=== PATIENT | female | born 1975 | race American Indian/Alaskan Native ===

== ENCOUNTER 2023-06-19 17:29 | Emergency (ER) | payer BC, OTHER ==
[~2023-06-19] VITALS: Ht 167.6 cm; Wt 117.6 kg
--- OUTSIDE RECORDS SUMMARY | 2023-06-19 17:31 | XMS ---
PreManage Notification: GINA MENDOZA Security Cold Header Events No recent Security Events currently on file CRITERIA MET - [facility] CARE PROVIDERS There are no care providers on record at this time. Kayla has no Care Guidelines for this patient. Mateo VISIT COUNT (12 MO.) 1 DENITA Retana TOTAL 1 NOTE: Visits indicate total known visits. ED/C VISIT TRACKING (12 MO.) 06/19/2023 17:30 DENITA Burciaga OR TYPE: Emergency COMPLAINT: - COLD SYMPTOMS INPATIENT VISIT TRACKING (12 MO.) No inpatient visits to display in this time frame [id number]
[2023-06-19] MEDS ORDERED: OZEMPIC1 MG/0.71 (18:22)
[2023-06-19] MEDS ORDERED: QUETIAPINE FUM200 MG PO (18:23)
[2023-06-19 18:33] LABS: INFLUENZA B NAA NEGATIVE (NEGATIVE); RESPIRATORY SYNCYTIAL VIR NAA NEGATIVE (NEGATIVE)
[2023-06-19 19:55] VITALS: BP 151/88
== END 2023-06-19 19:55 | disposition home or self-care (01) ==
LOC: ED 17:29
PROVIDERS: Emergency Medicine
DX: J45.901 Unspecified asthma with (acute) exacerbation (principal); E66.9 Obesity, unspecified; Z79.899 Other long term (current) drug therapy; Z20.822 Contact with and (suspected) exposure to COVID-19
CPT/HCPCS: 71045; 87502; 94640; 99284-25; A9270; U0002

== ENCOUNTER 2024-01-15 06:45 | Day surgery (SDC) | payer BC ==
[2024-01-12 08:27] VITALS: BP 134/85
[~2024-01-15] VITALS: Ht 172.7 cm; Wt 118.2 kg
[~2024-01-15 06:45] MED LIST: ASMANEX220 MC3; ATORVASTATIN CA20 MG PO; CYCLOBENZAPRINE5 MG PO; FOLIC ACID1 MG PO; GABAPENTIN600 MG PO; HYDROCODONE BIT10 MG PO; IRON325 M1 PO; MIDAZOLAM HCL 5 MG/5 ML VIAL IV PRN; ONDANSETRON ODT4 MG PO; OZEMPIC1 MG/0.71; PEPCID20 MG PO; QUETIAPINE FUM200 MG PO; TOPIRAMATE100 MG PO; VENTOLIN HFA18 GM INH; VIT C-ECHINACE1 EACH PO; fentaNYL citrate 100 MCG/2 ML VIAL IV PRN
[2024-01-15 06:59] VITALS: BP 137/75
[2024-01-15] MEDS ORDERED: LIDOCAINE HCL 4% 50 ML BTL TOP SCH (07:00)
[2024-01-15] MEDS ORDERED: LACTATED RINGER'S 1,000 ML IV SCH (07:00)
[2024-01-15] MEDS ORDERED: IBLOOD GLUCOSE TEST STRIP 1 EA TEST VI PRN (07:00)
[2024-01-15] MEDS ORDERED: LIDOCAINE HCL 1% 5 ML SDV INJ ONE (07:00)
[2024-01-15] MEDS ORDERED: propofoL 200 MG/20 ML VIAL ONE (09:07)
[2024-01-15] MEDS ORDERED: METOPROLOL TARTRATE 5 MG/5 ML VIAL ONE (09:59)
--- NOTE | 2024-01-15 11:01 | NUR ---
01/15/24 1101 Vita Almaraz LE 1007 PT ARRIVED TO PACU IN LT LATERAL POSITION. ORAL AND NASAL AIRWAYS IN PLACE. PT STARTED VOMITING. SUCTION USED TO CLEAR THE MOUTH. PT COUGHED FOR THE FIRST FEW MINUTES IN RECOVERY. SHE BECAUME MORE ALERT THE VOMITING STOPPED. SHE CONTINUED TO COUGH OCCASSIONALLY. LE 1010 ORAL AIRWAY WAS REMOVED. LE 1012 NASAL AIRWAY WAS REMOVED. LE 1015 PT AWAKE. BED WAS ELEVATED TO SITTING POSITION.
[2024-01-15 11:25] VITALS: BP 145/84
--- NOTE | 2024-01-16 13:20 | OR ---
[facility] [address] [place], [place] [address] Signed DATE OF OPERATION: 01/15/2024 SURGEON: Oscar Dunn MD PREOPERATIVE DIAGNOSES: 1. Presumed history of ulcer disease. 2. Clinical history of gastroesophageal reflux symptoms. 3. Colon screening. POSTOPERATIVE DIAGNOSES: 1. Polyps x2 of colon (left colon and sigmoid). 2. Hiatal hernia without associated esophagitis; inflammatory change of duodenum and antrum of stomach. PROCEDURES: 1. Esophagogastroduodenoscopy with biopsy. 2. Total colonoscopy to cecum with cold morcellation polypectomy x2. ANESTHESIA: Intravenous sedation, propofol infusion; Oscar Sanchez CRNA. INDICATION: This 48-year-old white woman is a patient of FREDDIE Vazquez and has had complaints of what sounds like gastroesophageal reflux symptoms. She describes having an "ulcer" in the past, though no specific imaging study or endoscopic evaluation confirmed this. She has reflux type symptoms as well. She is not currently on a PPI medication, though she has been on famotidine in the past. She has no family history of esophageal or gastric cancer. She does have associated asthma, sleep apnea but without associated dysphagia. She is noted to have bipolar depression. She continues to smoke one-half pack of cigarettes a day. Additionally, she has never had colonoscopy and on the basis of her age colonoscopy is recommended for screening. She has no family history of colon cancer. She does have family history of inflammatory bowel disease (Crohn's) in a grandparent. She has no current symptoms of bleeding, diarrhea, or constipation. FINDINGS: Upper endoscopy showed a hiatal hernia but no obvious esophagitis actually. There is no Electronically Signed By: OSCAR DUNN MD 01/16/24 1320 PATIENT NAME: GINA MENDOZA OPERATIVE REPORT DATE OF : 73 REPORT #: [id number] PHYSICIAN: OSCAR DUNN MD PCP: [facility]- REPORT IS CONFIDENTIAL AND NOT TO BE RELEASED WITHOUT AUTHORIZATION [facility] [address] [place], [place] [address] Signed Rosario's epithelium. There was duodenitis and antral gastritis likely related to smoking. There is no actual ulcer. CLOtest was negative 30 minutes post procedure. On colonoscopy, the prep was good. Complete colonoscopy was undertaken of the cecum. There were two polyp polyps, one in the left colon, the other in the sigmoid, both excised with cold morcellation technique. PROCEDURE IN DETAIL: The patient was brought to the endoscopy suite, given topical lidocaine hypopharyngeal anesthesia and placed in lateral decubitus position. Given her numerous medical issues, she was given a propofol infusional sedation technique. A bite block was placed. An Olympus video upper endoscope was passed in the hypopharynx. The vocal cords appeared normal, though somewhat edematous in the soft tissue surrounding the cords. The scope was advanced to the esophagus without problem. Throughout its length, the esophagus was actually normal in appearance. The scope was passed to the stomach which was insufflated with air. Rugal folds were normal. There was antral gastritis. Pylorus was normal. Scope was passed through into the duodenum. Edematous changes were noted of the duodenum, but there was no sign of actual ulcer. Biopsies were obtained to assess for celiac disease. The scope was withdrawn and biopsies then taken of the antrum for both KAMRAN and pathologic testing. Retroflexed view was undertaken showing a hiatal hernia, moderate size. The scope was straightened withdrawn and biopsies then taken of the distal esophagus, though it appeared normal clinically. Midesophageal biopsies were also obtained. The scope was then withdrawn and removed. Plans were then made for colonoscopy. Digital rectal examination was normal. Olympus video colonoscope was passed in the rectum and manipulated throughout the colon ultimately intubating the cecum itself. The ileocecal valve and appendiceal orifice were normal. The scope was withdrawn from that point. Examination showed no sign of abnormality into the proximal left colon. A small polyp was noted. Narrow-band imaging confirmed this. It was excised with cold morcellation technique. Further withdrawal identified a polyp probably hyperplastic in the sigmoid, which was excised with cold morcellation technique as well. Further withdrawal and retroflexed view in the rectum showed no sign of other abnormality. Scope was removed and the patient was taken to recovery room in good condition. CONCLUDING DIAGNOSES: 1. Antral gastritis and duodenitis, hiatal hernia but no esophagitis. 2. Polyps x2. PLAN: Recommend repeat colonoscopy in three years. Would recommend Prilosec 20 mg daily. We will see her back in the office in 6 to 8 weeks and assess her response to therapy. Electronically Signed By: OSCAR DUNN MD 01/16/24 1320 PATIENT NAME: GINA MENDOZA OPERATIVE REPORT DATE OF : 73 REPORT #: [id number] PHYSICIAN: OSCAR DUNN MD PCP: [facility] REPORT IS CONFIDENTIAL AND NOT TO BE RELEASED WITHOUT AUTHORIZATION [address] [address] Signed MD BUTCH Jones/MODL /[id number] cc: FREDDIE Vazquez Copies: ~ Electronically Signed By: OSCAR DUNN MD 01/16/24 1320 PATIENT NAME: REJIGINA JERONIMO OPERATIVE REPORT DATE OF : 73 REPORT #: [id number] PHYSICIAN: OSCAR DUNN MD [facility] REPORT IS CONFIDENTIAL AND NOT TO BE RELEASED WITHOUT AUTHORIZATION
--- NOTE | 2024-01-19 17:37 | PATH ---
[facility] [address] [facility] [place] [place] [address] Signed SPECIMEN(S): A DUODENAL BIOPSY SPECIMEN(S): B ANTRUM STOMACH BIOPSY SPECIMEN(S): C LOWER ESOPHAGEAL BIOPSY SPECIMEN(S): D MID ESOPHAGEAL BIOPSY SPECIMEN(S): E DESCENDING LEFT COLON POLYP SPECIMEN(S): F SIGMOID POLYP SPECIMEN SOURCE: A. DUODENAL BIOPSY B. ANTRUM STOMACH BIOPSY C. LOWER ESOPHAGEAL BIOPSY D. MID ESOPHAGEAL BIOPSY E. DESCENDING LEFT COLON POLYP F. SIGMOID POLYP CLINICAL HISTORY: EGD, duodenitis, hiatal hernia. Colon polyps. FINAL PATHOLOGIC DIAGNOSIS: A. Duodenum, biopsy: - Duodenal mucosa with no significant pathologic changes - Fragments of gastric antral mucosa with no significant pathologic changes B. Stomach, antrum, biopsy: - Gastric oxyntic mucosa with no significant pathologic changes C. Esophagus, lower, biopsy: - Esophageal squamous mucosa with no significant pathologic changes D. Esophagus, mid, biopsy: - Esophageal squamous mucosa with no significant pathologic changes E. Colon, descending left, polypectomy: - Tubular adenoma F. Colon, sigmoid, polypectomy: - Hyperplastic polyp BRP MICROSCOPIC EXAMINATION: Histologic sections of all submitted blocks are examined by light microscopy. These findings, together with the gross examination, support the pathologic diagnosis. GROSS DESCRIPTION: A. The specimen, labeled and designated "Kandice duodenal biopsy," is received PATIENT NAME: GINA WOODSON JERONIMO PATHOLOGY DATE OF : 73 REPORT #: [id number] PHYSICIAN: ALEJANDRO YATES PCP: [facility] REPORT IS CONFIDENTIAL AND NOT TO BE RELEASED WITHOUT AUTHORIZATION [facility] [address] [place], [place] [address] Signed in formalin and consists of five munroe soft tissue fragments, ranging from 0.2-0.6 cm. Entirely submitted in (A1). B. The specimen, labeled and designated "Woodson, antrum stomach biopsy," is received in formalin and consists of two munroe soft tissue fragments, ranging from 0.1-0.5 cm. Entirely submitted in (B1). C. The specimen, labeled and designated "Woodson, lower esophageal biopsy," is received in formalin and consists of three munroe soft tissue fragments, ranging from 0.3-0.4 cm. Entirely submitted in (C1). D. The specimen, labeled and designated "Woodson, mid esophageal biopsy," is received in formalin and consists of four munroe soft tissue fragments, ranging from 0.3-0.4 cm. Entirely submitted in (D1). E. The specimen, labeled and designated "Woodson, descending/left colon polyp," is received in formalin and consists of two munroe soft tissue fragments, ranging from 0.2-0.3 cm. Entirely submitted in (E1). F. The specimen, labeled and designated "Woodson, sigmoid polyp," is received in formalin and consists of three munroe soft tissue fragments, ranging from 0.2-0.3 cm. Entirely submitted in (F1). VB (under the direct supervision of a pathologist) The Gross Description was prepared using a voice recognition system. The report was reviewed for accuracy; however, sound-alike word errors, addition and/or deletions may occur. If there is any question about this report, please contact Client Services. ADDITIONAL NOTES: Immunohistochemical and/or in situ hybridization studies if performed in this case included appropriate positive controls that reacted as expected. This test was developed and its performance characteristics determined by [facility]. It has not been cleared or approved by the U.S. Food and Drug Administration. The FDA has determined that such clearance or approval is not necessary. This test is used for clinical purposes. It should not be regarded as investigational or for research. [facility] is certified under the Clinical Laboratory Improvement Amendments of 1988 (CLIA) as qualified to perform high complexity clinical laboratory testing. PERFORMING LABORATORY: Technical component was performed by [facility], [address] [place] [id number] (CLIA# [id number]). Professional interpretation was PATIENT NAME: GINA WOODSON JERONIMO PATHOLOGY DATE OF : 73 REPORT #: [id number] PHYSICIAN: ALEJANDRO YATES PCP: [facility] REPORT IS CONFIDENTIAL AND NOT TO BE RELEASED WITHOUT AUTHORIZATION [facility] [address] [place] [id number] Signed performed by [facility] [address] [place] [id number] Diagnostician: Yg Tobin MD Pathologist Electronically Signed 01/19/2024 Copies: ~ PATIENT NAME: GINA WOODSON PATHOLOGY DATE OF : 73 REPORT #: [id number] PHYSICIAN: ALEJANDRO PATHOLOGY PCP: [facility] REPORT IS CONFIDENTIAL AND NOT TO BE RELEASED WITHOUT AUTHORIZATION
== END 2024-01-15 10:55 | disposition home or self-care (01) ==
LOC: DS 06:45 → OPS 06:45 → DS 10:30 → OPS 10:55 → DS 02-05 10:30
PROVIDERS: ATTEND Surgery
PROC: 0DB98ZX Excision of Duodenum, Via Natural or Artificial Opening Endoscopic, Diagnostic (ICD-10-PCS; 2024-01-15)
PROC: 0DB68ZX Excision of Stomach, Via Natural or Artificial Opening Endoscopic, Diagnostic (ICD-10-PCS; 2024-01-15)
PROC: 0DB28ZX Excision of Middle Esophagus, Via Natural or Artificial Opening Endoscopic, Diagnostic (ICD-10-PCS; 2024-01-15)
PROC: 0DB38ZX Excision of Lower Esophagus, Via Natural or Artificial Opening Endoscopic, Diagnostic (ICD-10-PCS; 2024-01-15)
PROC: 0DBG8ZX Excision of Left Large Intestine, Via Natural or Artificial Opening Endoscopic, Diagnostic (ICD-10-PCS; principal; 2024-01-15 09:25)
PROC: 0DBN8ZX Excision of Sigmoid Colon, Via Natural or Artificial Opening Endoscopic, Diagnostic (ICD-10-PCS; 2024-01-15 09:25)
DX: Z12.11 Encounter for screening for malignant neoplasm of colon (principal); D12.4 Benign neoplasm of descending colon; K63.5 Polyp of colon; K44.9 Diaphragmatic hernia without obstruction or gangrene; K29.80 Duodenitis without bleeding; K29.70 Gastritis, unspecified, without bleeding; K21.9 Gastro-esophageal reflux disease without esophagitis; E66.01 Morbid (severe) obesity due to excess calories; F31.9 Bipolar disorder, unspecified; E78.5 Hyperlipidemia, unspecified; J68.3 Other acute and subacute respiratory conditions due to chemicals, gases, fumes and vapors; Z72.0 Tobacco use
CPT/HCPCS: 00813; 84703; J2704; J7121